=== PATIENT | female | born 1980 | race Caucasian/White ===

== ENCOUNTER 2017-10-01 16:41 | Emergency (ER) | payer MEDICAID, OTHER ==
[~2017-10-01] VITALS: Ht 157.5 cm; Wt 61.2 kg
[2017-10-01 16:45] VITALS: BP 135/88
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
--- NOTE | 2017-10-01 16:54 | NUR ---
ICE PACK APPLIED
--- NOTE | 2017-10-01 16:56 | NUR ---
XRAY AT BEDSIDE
--- NOTE | 2017-10-01 18:03 | NUR ---
X-RAY NEGATIVE PER ---
[2017-10-01 18:11] VITALS: BP 119/78
--- NOTE | 2017-10-01 18:11 | NUR ---
Patient discharged with v/s stable. Written and verbal after care instructions given and explained. Patient verbalized understanding. Ambulatory with steady gait. All questions addressed prior to discharge. Advised to follow up with PMD.
== END 2017-10-01 18:11 | disposition home or self-care (01) ==
LOC: MED 16:41
DX: S93.402A Sprain of unspecified ligament of left ankle, initial encounter (principal); X50.0XXA Overexertion from strenuous movement or load, initial encounter; Y93.89 Activity, other specified; Y99.8 Other external cause status; Y92.89 Other specified places as the place of occurrence of the external cause
CPT/HCPCS: 29515; 73610; 99284; Q0092

== ENCOUNTER 2019-06-30 08:31 | Emergency (ER) | payer MEDICAID, OTHER ==
[~2019-06-30] VITALS: Ht 157.5 cm; Wt 62.6 kg
[2019-06-30 08:40] VITALS: BP 133/73
--- NOTE | 2019-06-30 08:45 | NUR ---
38/f bib self c/o fever, cough x yesterday. temp 99.1 at this time.med hx: denies. PATIENT STATES PAIN OF 0/10 AT THIS TIME. PATIENT POSITIONED FOR COMFORT; HOB ELEVATED; BEDRAILS UP X1; BED DOWN. ER MD MADE AWARE OF PT STATUS.
--- NOTE | 2019-06-30 08:53 | NUR ---
Dr. Hsu evaluating patient at this time.
[2019-06-30] MEDS ORDERED: KETOROLAC 60 MG/2 ML VIAL IM ONE (09:00)
[2019-06-30 09:16] VITALS: BP 133/73
--- NOTE | 2019-06-30 09:16 | NUR ---
Patient discharged with v/s stable. Written and verbal after care instructions given and explained. Patient alert, oriented and verbalized understanding of instructions. Ambulatory with steady gait. All questions addressed prior to discharge. ID band removed. Patient advised to follow up with PMD. Rx of PREDNISONE, MOTRIN given. Patient educated on indication of medication including possible reaction and side effects. Opportunity to ask questions provided and answered.
== END 2019-06-30 08:53 | disposition home or self-care (01) ==
LOC: MED 08:31
DX: R05 Cough (principal); R50.9 Fever, unspecified; R51 Headache
CPT/HCPCS: 96372; 99283; J1885